=== PATIENT | female | born 1995 | race Caucasian/White ===

== ENCOUNTER 2020-07-12 02:44 | Outpatient (CLI) | payer MEDICAID, SELFPAY ==
[2020-07-12 11:59] LABS: Source Nasal/Nares
[2020-07-12 22:32] LABS: COVID-19 PCR Negative (Negative)
== END 2020-07-12 02:45 | disposition home or self-care (01) ==
LOC: LBO 02:44
PROVIDERS: PCP Pediatrics; Visit Provider Family Medicine
DX: Z20.822 Contact with and (suspected) exposure to COVID-19 (principal); Z01.818 Encounter for other preprocedural examination
CPT/HCPCS: 87635

== ENCOUNTER 2020-11-29 14:18 | Emergency (ER) | payer OTHER, SELFPAY ==
[2020-11-29 14:32] VITALS: BP 127/87; PULSE 87; RESP 14; TEMP 37; O2SAT 99
--- NOTE | 2020-11-29 15:00 | DI.CT_ITS ---
Exam(s) CT HEAD WO EXAM: CT HEAD WO CLINICAL HISTORY: HI, persistent CORREA. TECHNIQUE: Imaging Protocol: Axial computed tomography images with coronal and sagittal reformatted images were created and reviewed COMPARISON: No exams were available for comparison FINDINGS: There are no skull fractures nor fluid in the visualized paranasal sinuses. There is no evidence of intracranial hemorrhage, mass effect, or shift of midline structures. There are no extra-axial fluid collections. The ventricles are not enlarged or shifted and there is no blo od within the ventricular system nor within the basal cisterns. IMPRESSION: No acute intracranial findings on this noninfused CT scan of the brain. RADIATION DOSE DELIVERED: 695mGy.cm Total DLP DATA REPOSITORY: All CT scans at this facility are submitted to the National Radiology Data Registry (NRDR) Dose Index Registry (DIR) with the [employer] ([employer]). RADIATION OPTIMIZATION: All CT scans at this facility use at least one of these dose optimization te chniques: automated exposure control; mA and/or kV adjustment per patient size (includes targeted exa ms where dose is matched to clinical indication); or iterative reconstruction.
[2020-11-29] MEDS: Acetaminophen 500 MG TAB 1000 MG PO (15:41)
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
--- NOTE | 2020-11-29 16:40 | NUR.NOTE ---
REFFERAL TO CM FOR PCP ESTABLISHMENT
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
[2020-11-29 16:49] VITALS: BP 107/80; PULSE 73; RESP 14; O2SAT 100
== END 2020-11-29 16:53 | disposition home or self-care (01) ==
PROVIDERS: Emergency Provider Physician Assistant
DX: S06.0X0A Concussion without loss of consciousness, initial encounter (principal); W16.612A Jumping or diving into natural body of water striking water surface causing other injury, initial encounter
CPT/HCPCS: 81025; 99284; 70450

== ENCOUNTER 2021-01-02 20:38 | Outpatient (REF) | payer OTHER, SELFPAY ==
[2021-01-02 22:20] LABS: Abs Immature Grans 0.01 10^3/uL (0.0-0.06); Absolute Basophil Count 0.04 10^3/uL (0.0-0.2); Absolute Eosinophil Count 0.04 10^3/uL (0.0-0.7); Absolute Lymphocyte Count 2.53 10^3/uL (1.2-3.4); Absolute Monocyte Count 0.49 10^3/uL (0.1-0.8); Absolute Neutrophil Count 2.22 10^3/uL (1.2-6.7); Basophils % 0.8; Eosinophils % 0.8; HCT 40.7 % (36.0-46.0); HGB 13.7 g/dL (11.2-15.7); Immature Grans % 0.2; Lymphocytes % 47.5; MCH 28.7 pg (27.0-33.0); MCHC 33.7 % (32.0-36.0); MCV 85.3 fL (80-95); MPV 9.9 fL (8.0-11.0); Monocytes % 9.2; Neutrophils % 41.5; Nucleated RBC 0 %; Platelet Count 372 10^3/uL (130-400); RBC 4.77 10^6/uL (3.93-5.22); RDW 11.4 % (11.7-14.6); RDW-SD 35.5 fL; WBC 5.33 10^3/uL (4.4-10.8)
[2021-01-02 22:26] LABS: Bilirubin Negative (Negative); Blood Negative (Negative); Clarity Clear (Clear); Glucose Negative (Negative); Ketones Negative (Negative); Leukocyte Esterase Negative (Negative); Nitrite Negative (Negative); Specific Gravity 1.015 (1.005-1.025); Urobilinogen 0.2 EU/dL (Up TO 0.2); pH 7.5 (5-8)
[2021-01-02 22:30] LABS: ALT 24 U/L (14-59); AST 15 U/L (15-37); Alkaline Phosphatase 50 U/L (46-116); Anion Gap 9.7 mmol/L (3-11); BUN 9 mg/dL (7-18); Bilirubin, Total 0.4 mg/dL (0.2-1.0); CO2 28.3 mmol/L (21.0-32.0); CREATININE 0.8 mg/dL (0.55-1.02); Calcium 9.2 mg/dL (8.5-10.1); Chloride 103 mmol/L (98-107); Glucose 89 mg/dL (74-106); Lipase 130 U/L (73-393); Potassium 3.9 mmol/L (3.5-5.1); Sodium 141 mmol/L (136-145); Total Protein 7.4 g/dL (6.4-8.2)
[2021-01-04 15:06] LABS: Chlamydia Result Negative (Negative); GC Result Negative (Negative)
== END 2021-01-02 20:39 | disposition home or self-care (01) ==
LOC: NCHCN 20:38
PROVIDERS: PCP Family Medicine; Visit Provider Physician Assistant
DX: R10.9 Unspecified abdominal pain (principal); R10.2 Pelvic and perineal pain; N23 Unspecified renal colic; N76.0 Acute vaginitis
CPT/HCPCS: 80053; 83690; 87491; 87591; 81003; 85025; 87480; 87510; 87660